=== PATIENT | female | born 1970 | race Caucasian/White ===

== ENCOUNTER 2020-05-25 19:00 | Emergency (ER) | payer OTHER ==
[~2020-05-25] VITALS: Ht 167.6 cm; Wt 108.9 kg
[2020-05-25] MEDS ORDERED: SYNTHROID100 MC1 PO (19:19)
[2020-05-25] MEDS ORDERED: PROTONIX40 M2 PO (19:19)
[2020-05-25] MEDS ORDERED: ZOLOFT 50 MG TA50 MG PO (19:20)
[2020-05-25] MEDS ORDERED: NORCO5 PO ×2 (19:20→22:22)
[2020-05-25 19:57] LABS: URINE BILIRUBIN NEGATIVE (Negative); URINE BLOOD 3+ (Negative); URINE COLOR YELLOW; URINE GLUCOSE-RANDOM NEGATIVE (Negative); URINE KETONES TRACE (Negative); URINE LEUKOCYTES-REFLEX NEGATIVE (Negative); URINE NITRITE-REFLEX NEGATIVE (Negative); URINE PROTEIN NEGATIVE (Negative); URINE SPECIFIC GRAVITY 1.025 (1.005-1.030); URINE UROBILINOGEN 0.2 E.U./dl (0.2-1.0)
[2020-05-25 20:01] LABS: URINE CLARITY HAZY
[2020-05-25 20:10] LABS: HEMATOCRIT 40.6 % (37.0-47.0); HEMOGLOBIN 13.5 gm/dL (12.0-15.0); MCH 26.8 pg (26.0-34.0); MCHC 33.2 g/dL (28.0-37.0); MCV 80.7 fL (80.0-100.0); MPV 7.9 fl. (7.2-11.1); NUCLEATED RBCS 0 /100WBC; PLATELET COUNT* 292 thou/uL (150-400); RBC 5.02 mil/uL (4.20-5.00); RDW-CV 13.7 % (10.5-14.5); WBC 10.6 thou/uL (4.0-11.0)
[2020-05-25 20:23] LABS: CALCIUM 8.5 mg/dL (8.5-10.1); POTASSIUM 4.7 mmol/L (3.5-5.1)
[2020-05-25 20:27] LABS: ALBUMIN 3.7 g/dL (3.4-5.0); TOTAL BILIRUBIN 0.5 mg/dL (<0.1-1.0)
[2020-05-25 20:32] LABS: HYALINE CASTS 0-3 Few /LPF (None Seen); MUCUS 4-6 Moderate strn/LPF (None Seen); SQUAMOUS >10 Many /LPF (0-3)
[2020-05-25 20:34] LABS: CRYSTALS None Seen /LPF (None Seen); URINE WBC-REFLEX None Seen /HPF (0-5)
[2020-05-25 20:58] LABS: ABSOLUTE EOSINOPHILS 0.1 thou/uL (0.0-0.7); ABSOLUTE LYMPHOCYTES 0.5 thou/uL (0.8-5.3); ABSOLUTE MONOCYTES 0.6 thou/uL (0.0-1.2); ABSOLUTE NEUTROPHILS 9.3 thou/uL (1.6-8.1)
[2020-05-25 20:59] LABS: PLATELET ESTIMATE ADEQUATE
[2020-05-25] MEDS ORDERED: CARAFATE1 GM/10 ML PO (22:22)
[2020-05-25] MEDS ORDERED: REGLAN 10 MG TA10 MG PO (22:22)
[2020-05-25 22:36] VITALS: BP 157/91
--- NOTE | 2020-05-26 09:19 | EKG ---
[place] [address] ELECTROCARDIOGRAM REPORT Name: TUCKER FELIX [facility] [id number] Admission: 05/25/20 Attend Phys: Discharge: 05/25/20 Date of : 74 Date of Service: 05/25/202013 Report #: [id number] THIS REPORT FOR: //name// [facility] ED Test Date: 2020-05-25 Test Time: 20:14:42 Pat Name: TUCKER FELIX Department: Room: Gender: [place]: [place] : 1970 Requested By: Nga Khan Order Number: [id number] MD: Emil Peña Measurements Intervals [place] Rate: 85 P: 38 OK: 137 QRS: -8 QRSD: 86 T: 50 QT: 365 QTc: 434 Interpretive Statements Sinus rhythm Abnormal R-wave progression, early transition Borderline T wave abnormalities Baseline wander in lead(s) V1 No previous ECG available for comparison Electronically Signed On 05-26-2020 9:19:23 CDT by Emil Peña [email or web address] <ELECTRONICALLY SIGNED> By: Emil Peña MD, [facility] 05/26/20 0919 13 13 Emil Peña MD, [facility] /EPI
== END 2020-05-25 22:37 | disposition home or self-care (01) ==
LOC: M.ERS 19:00
PROVIDERS: Nurse Practitioner Family
DX: K52.9 Noninfective gastroenteritis and colitis, unspecified (principal); E27.8 Other specified disorders of adrenal gland; G43.909 Migraine, unspecified, not intractable, without status migrainosus